=== PATIENT | female | born 1970 | race Caucasian/White ===

== ENCOUNTER → 2017-04-03 | Outpatient (CLI) | payer OTHER | LOC: M.CT 10:48 | DX: R51 Headache (principal) ==

== ENCOUNTER 2018-05-03 23:41 | Emergency (ER) | payer OTHER ==
[~2018-05-03] VITALS: Ht 167.6 cm; Wt 63.5 kg
[2018-05-04] MEDS ORDERED: EFFEXOR XR37.5 MG PO (00:12)
[2018-05-04] MEDS ORDERED: XANAX 0.25 MG0.25 MG PO (00:13)
[2018-05-04] MEDS ORDERED: PREMARIN1.25 MG PO (00:14)
[2018-05-04 00:26] LABS: ABSOLUTE BASOPHILS 0.1 thou/uL (0.0-0.2); ABSOLUTE EOSINOPHILS 0.1 thou/uL (0.0-0.7); ABSOLUTE LYMPHOCYTES 3.5 thou/uL (0.8-5.3); ABSOLUTE MONOCYTES 1.2 thou/uL (0.0-1.2); ABSOLUTE NEUTROPHILS 11.9 thou/uL (1.6-8.1); BASOPHILS 0.4 %; EOSINOPHILS 0.8 %; HEMOGLOBIN 12.5 gm/dL (12.0-15.0); LYMPHOCYTES 20.7 %; MCH 30.3 pg (26.0-34.0); MCHC 33.9 g/dL (28.0-37.0); MCV 89.5 fL (80.0-100.0); MONOCYTES 7.2 %; MPV 7.3 fl. (7.2-11.1); NUCLEATED RBCS 0 /100WBC; PLATELET COUNT* 237 thou/uL (150-400); POLYS 70.9 %; RBC 4.14 mil/uL (4.20-5.00); RDW-CV 14.1 % (10.5-14.5); WBC 16.8 thou/uL (4.0-11.0)
[2018-05-04 00:48] LABS: ALBUMIN 3.6 g/dL (3.4-5.0); CALCIUM 9.5 mg/dL (8.5-10.1); CREATININE 0.9 mg/dL (0.6-1.3); POTASSIUM 3.6 mmol/L (3.5-5.1); TOTAL BILIRUBIN 0.6 mg/dL (<0.1-1.0); TOTAL PROTEIN 7.4 g/dL (6.4-8.2)
[2018-05-04 01:43] LABS: URINE BILIRUBIN NEGATIVE (Negative); URINE BLOOD NEGATIVE (Negative); URINE CLARITY CLEAR; URINE COLOR YELLOW; URINE GLUCOSE-RANDOM NEGATIVE (Negative); URINE KETONES TRACE (Negative); URINE LEUKOCYTES-REFLEX NEGATIVE (Negative); URINE NITRITE-REFLEX NEGATIVE (Negative); URINE PROTEIN NEGATIVE (Negative); URINE UROBILINOGEN 0.2 E.U./dl (0.2-1.0)
[2018-05-04] MEDS ORDERED: HYDROCODONE-AP1 EAC6 PO (02:45)
[2018-05-04] MEDS ORDERED: LEVAQUIN 750 M750 MG PO (02:45)
[2018-05-04] MEDS ORDERED: ZOFRAN ODT4 MG DISSOLVE (02:45)
[2018-05-04 02:55] VITALS: BP 123/74
--- NOTE | 2018-05-05 12:28 | EKG ---
[place] [address] ELECTROCARDIOGRAM REPORT Name: TAMMY JACKSON Room: [facility]#: [id number] Admission: 05/03/18 Attend Phys: Discharge: 05/04/18 Date of : 66 Report #: [id number] THIS REPORT FOR: //name// [facility] ED Test Date: 2018-05-04 Test Time: 00:24:09 Pat Name: TAMMY JACKSON Department: Room: Gender: F Design Tech: : 1970 Requested By: Hanny Olguin Order Number: [id number] MD: Lance Patel Measurements Intervals [place] Rate: 67 P: 32 [place]: 157 QRS: -13 QRSD: 102 T: 4 QT: 425 QTc: 449 Interpretive Statements Sinus rhythm Low voltage, precordial leads Borderline T abnormalities, inferior leads No previous ECG available for comparison Electronically Signed On 05-05-2018 12:28:26 VOLCANOLOGY PROFESSOR by Lance Patel [email or web address] <ELECTRONICALLY SIGNED> By: Lance Patel MD, [facility] 05/05/18 1228 D: 01/23 Lance Patel MD, FACC /EPI
== END 2018-05-04 02:55 | disposition home or self-care (01) ==
LOC: M.ERS 23:41
PROVIDERS: Nurse Practitioner Family
DX: K81.9 Cholecystitis, unspecified (principal); R11.2 Nausea with vomiting, unspecified; Z90.710 Acquired absence of both cervix and uterus

== ENCOUNTER 2018-05-24 06:12 | Observation (INO) | payer OTHER ==
--- NOTE | ~2018-05-24 | H ---
[address] [address] HISTORY AND PHYSICAL Name: TAMMY JACKSON Room: [address] Xi Naik#: [id number] Admission: 05/24/18 Attend Phys: Kimani Ceballos DO Discharge: 05/25/18 Date of : 66 Report #: [id number] THIS REPORT FOR: //name// Please refer to the History and Physical performed in the physician's office. By: 0621Medical Records Staff JOE /CHANELL
--- NOTE | ~2018-05-24 | OP ---
[address] [address] OPERATIVE REPORT Name: TAMMY JACKSON Room: [address] M.RJana#: [id number] Admission: 05/24/18 Attend Phys: Kimani Ceballos DO Discharge: Date of : 66 Report #: [id number] THIS REPORT FOR: //name// CC: Kimani Ferrer DO DATE OF SERVICE: 05/24/2018 PREOPERATIVE DIAGNOSES: Symptomatic cholelithiasis and elevated liver function tests. POSTOPERATIVE DIAGNOSES: Symptomatic cholelithiasis and elevated liver function tests, intra-abdominal adhesions and colotomy. PROCEDURE: Laparoscopic cholecystectomy with intraoperative cholangiograms converted to laparotomy with repair of colotomy, lysis of adhesions and omental patch. SURGEON: Kimani Ceballos DO. GREENSKEEPER: Sahy Pool DO, PGY2, resident. SECOND PRINTING MACHINE OPERATOR: Student Dr. Leonidas Escalante. ANESTHESIA: General endotracheal. ESTIMATED BLOOD LOSS: Less than 30 mL. COMPLICATIONS: There was an incidental colotomy on entering the peritoneal cavity, which was secondary to the transverse colon being adherent to the abdominal wall in the area of the umbilicus. This was immediately recognized and repaired immediately with no fecal contamination. DESCRIPTION OF PROCEDURE: After obtaining proper consents and discussing risks and complications with the patient, she was taken to the operating room, laid on the supine position, administered general anesthesia. She was then prepped and draped in the usual fashion. A timeout was performed. We confirmed the appropriate patient and procedure. Preoperative antibiotics had been given. SCDs were in place. We then made a small infraumbilical skin incision through the patient's previous periumbilical incision. This was carried down through the skin into the subcutaneous tissue using electrocautery for hemostasis. Once the fascia was encountered, it was incised along the midline. The fascia was then grasped and elevated. We then identified the peritoneum, which was bluntly opened using a hemostat. It appeared that there were some allan-incisional adhesions, which were swept away with a finger. [place] [id number] OPERATIVE REPORT Name: TAMMY JACKSON NERISSA Room: [address] M.R.#: [id number] Admission: 05/24/18 Attend Phys: Kimani Ceballos DO Discharge: Date of : 66 Report #: [id number] 5-mm trocar and then began insufflation. The abdomen did insufflate. We then placed the laparoscopic camera. When we placed the camera, it appeared that we were either within an adhesion or within the preperitoneal space, so immediately, I removed the camera and then removed the trocar. I then again attempted to grasp and elevate what appeared to be the peritoneum with hemostat. I then bluntly entered this using a hemostat again. At this point, a small amount of air came out and I was not sure whether this was from insufflating the preperitoneal space or if it was from a bowel injury, so I immediately extended my incision inferiorly and opened the fascia slightly more. I then elevated the fascia using 2 Piyush clamps and then identified that there were adhesions, which appeared to be colon to the abdominal wall. These were freed using blunt and sharp dissection with Metzenbaum scissors until I was able to bring this area up into the wound. We immediately identified an area where there appeared to be a colotomy. This was very small, measuring approximately 1 cm. When I did squeeze proximal and distal to this, a small amount of air came out of this hole. I immediately repaired the colotomy using interrupted 2-0 Vicryl sutures to close it primarily and then also placed a Lembert stitch over top of this and then also placed an epiploic appendage over top and sutured that in place using a 2-0 Vicryl suture as well. At this point, I was able to see within the peritoneal cavity very easily. We elected since there was no contamination to proceed with laparoscopic cholecystectomy with intraoperative cholangiograms. So prior to doing that, I closed the fascia, so as just large enough for us to place our 5-mm Cristi trocar through. We then insufflated the abdomen again. Full visual inspection of the anterior abdominal organs was performed. There were some adhesions along the left upper quadrant, mostly omentum, but this did appear to be tenting the transverse colon up, so these were taken down cautiously using electrocautery assuring no injury to the bowel. I stayed quite a ways away from that. We then explored the entire abdomen and again, we could identify the area that I just repaired the colotomy. There did appear to be some air in the epiploic appendages around this, but there was no evidence of any gross contamination. At this point, we elected to proceed with laparoscopic cholecystectomy with intraoperative cholangiograms. The patient was then placed in reverse Trendelenburg position, rotated to the left. A 5-mm trocar was placed in the subxiphoid position. Two 5-mm trocars were placed in the right flank. I was then able to grasp and elevate the gallbladder. I identified Faye's pouch, which was grasped and elevated. The hepatoduodenal ligament was then stripped down from the gallbladder until I was able to visualize the cystic duct. We also identified the common hepatic and common bile duct, which were kept well out of the way. I then dissected the cystic duct completely free, it was seen coursing directly into the gallbladder. I placed a clip at the gallbladder cystic duct junction and then made a small ethan in the cystic duct. I then inserted a cholangiogram catheter through the anterior abdominal wall using a 14-gauge Angiocath. This catheter was then inserted into the cystic duct and clipped in place. I then performed cholangiography using fluoroscopy. This showed good flow of bile down a fairly long cystic duct into the common bile duct and into the duodenum. There [place] [address] OPERATIVE REPORT Name: TAMMY JACKSON NERISSA Room: [address] Xi Sanchez.#: [id number] Admission: 05/24/18 Attend Phys: Kimani Ceballos DO Discharge: Date of : 66 Report #: [id number] the common hepatic duct and hepatic radicles. There was no evidence of any filling defects or obstruction. At this point, we then removed the cholangiogram catheter. I placed 4 clips proximally on the cystic duct and the cystic duct was divided. I then identified the cystic artery, which was also seen coursing directly into the gallbladder. This was clipped proximally and distally and then divided. The gallbladder was then removed from the liver bed using electrocautery. Once this was completely removed, the cystic duct and cystic artery stumps were checked for any leak or bleeding as well as the liver bed. The gallbladder was then placed into an Endopouch. We then went back and explored the abdomen again and again checked the transverse colon where there had been a colotomy. There was still some air identified in the epiploic appendages and even though I had already repaired this area, I was somewhat concerned, so we elected to then remove the gallbladder through the umbilical incision, but I did open the fascia of that area again and then since I had taken down the adhesions to the transverse colon, I was able to bring the entire transverse colon out of the abdomen and we again explored. I did try to milk the colon, both proximally and distally to see if I could find any area that was leaking. I did not find any further areas of leak, but as a precaution, I did oversew one area where there was a small serosal tear and then, I also placed an omental patch over top of the area that had previously been repaired at the beginning of the surgery as well as this omental patch was sewed in place using 2-0 Vicryl suture. I then again explored the entire abdomen through our fairly small incision and ran the small bowel to assure there were no other injuries. As a precaution prior to taking out our laparoscopic trocars, we had placed a 15-Portuguese Angel-Acosta drain also. I then closed the fascia and peritoneum of this midline infraumbilical incision using a running 0 PDS suture. We also closed a portion of that with interrupted 0 PDS suture. The skin incisions were then all closed using 4-0 Monocryl subcuticular stitches. The drain was sutured in place using 2-0 nylon suture. We also prior to removing our laparoscopic instruments had copiously irrigated the abdominal cavity, especially in the area of the transverse colon colotomy. Once this was all done and the skin was closed, sterile dressings were placed. The patient was then awakened in the operating room and transported to recovery room in stable condition. By: [id number] Eugenio Ceballos DO /kindra
[~2018-05-24 06:12] MED LIST: EFFEXOR XR37.5 MG PO; HYDROCODONE-AP1 EAC6 PO; LEVAQUIN 750 M750 MG PO; PREMARIN1.25 MG PO; XANAX 0.25 MG0.25 MG PO; ZOFRAN ODT4 MG DISSOLVE
[2018-05-24 07:11] LABS: ALBUMIN 3.2 g/dL (3.4-5.0); DIRECT BILIRUBIN 0.1 mg/dL (<0.1-0.3); TOTAL BILIRUBIN 0.3 mg/dL (<0.1-1.0); TOTAL PROTEIN 6.9 g/dL (6.4-8.2)
[2018-05-24 13:33] VITALS: BP 116/72
--- NOTE | 2018-05-24 15:54 | NUR ---
PATIENT ARRIVED ON UNIT FROM PACU AT 1600. COMPLETED ASSESSMENT. VITAL SIGNS AND SPO2 STABLE. IV CLEAN, FLUIDS INFUSING. PAIN WELL CONTROLLED WITH PAIN MEDS. CARLOS DRAIN INTACT. TOELRATED SIPS OF WATER, NO NAUSEA AND VOMITING. STILL WAITING ON PATIENT TO VOID. COMPLETED HOURLY ROUDING. CALL LIGHT WITHIN REACH, WILL CONTINUE TO MONITOR.
[2018-05-24 17:02] VITALS: BP 106/62
--- NOTE | 2018-05-24 18:58 | NUR ---
PATIENT REMAINED ALERT AND ORIENTED X'S 4. AGREE WITH PREVIOUS ASSESSMENT. PATIENT HAS VOIDED AND WALKED HALLS MULTIPLE TIMES. PAIN WELL CONTROLLED WITH MEDS. CALL LIGHT WITHIN REACH. WILL CONTINUE TO MONITOR.
[2018-05-24 22:10] VITALS: BP 116/52
[2018-05-25 00:30] VITALS: BP 94/64
[2018-05-25 04:12] LABS: ABSOLUTE LYMPHOCYTES 1.6 thou/uL (0.8-5.3); ABSOLUTE MONOCYTES 0.9 thou/uL (0.0-1.2); ABSOLUTE NEUTROPHILS 11.2 thou/uL (1.6-8.1); BASOPHILS 0.2 %; HEMATOCRIT 32.6 % (37.0-47.0); HEMOGLOBIN 11.1 gm/dL (12.0-15.0); LYMPHOCYTES 11.7 %; MCH 30.9 pg (26.0-34.0); MCHC 34.2 g/dL (28.0-37.0); MCV 90.4 fL (80.0-100.0); MONOCYTES 6.4 %; MPV 7.8 fl. (7.2-11.1); NUCLEATED RBCS 0 /100WBC; PLATELET COUNT* 160 thou/uL (150-400); POLYS 81.7 %; RBC 3.61 mil/uL (4.20-5.00); RDW-CV 14.1 % (10.5-14.5); WBC 13.8 thou/uL (4.0-11.0)
[2018-05-25 04:30] VITALS: BP 107/62
[2018-05-25 04:30] LABS: ALBUMIN 2.8 g/dL (3.4-5.0); CALCIUM 8.1 mg/dL (8.5-10.1); POTASSIUM 3.9 mmol/L (3.5-5.1); TOTAL BILIRUBIN 0.4 mg/dL (<0.1-1.0); TOTAL PROTEIN 6.4 g/dL (6.4-8.2)
--- NOTE | 2018-05-25 05:41 | NUR ---
PT SLEPT ON AND OFF THIS SHIFT. ASSESSMENT DOCUMENTED. MEDS GIVEN PER E-JUN. IV PATENT. PAIN MEDS GIVEN PER E-JUN WITH RELIEF. NO REPORTS OF NAUSEA THIS SHIFT. DRESSING TO ABD C/D/I, CARLOS DRAIN IN PLACE. WILL CONTINUE WITH PLAN OF CARE.
[2018-05-25 08:45] VITALS: BP 112/61
[2018-05-25] MEDS ORDERED: NORCO 5-325 TA1 EACH PO (14:44)
[2018-05-25 14:58] VITALS: BP 112/61
--- NOTE | 2018-05-25 15:52 | NUR ---
PATIENT DISCHARGED FROM UNIT AT 1545. ALERT AND ORIENTED X 4. VITAL SIGNS STABLE ON ROOM AIR. UP AD SALLIE IN ROOM AND AMBULATING IN HALLWAY. IV AND CARLOS DRAIN DISCONTINUED. SCRIPT, MEDICATION INFORMATION, AND DISCHARGE INSTRUCTIONS GIVEN TO PATIENT. LEFT WITH ALL BELONGINGS. PATIENT LEFT WITH SIGNIFICANT OTHER VIA CAR.
[2018-05-25 16:00] VITALS: BP 112/61
--- NOTE | 2018-05-28 11:13 | PATH ---
[address] [address] PATHOLOGY RPT PROCEDURE Name: TAMMY HERNANDEZ NERISSA Room: [address] Xi Naik#: [id number] Admission: 05/24/18 Date of : 66 Discharge: 05/25/18 Report #: [id number] Path Case #: [id number] [facility] Accession Number: [id number] . 01 Material submitted: . GALLBLADDER . 01 Clinical history: . Cholecystitis and cholelithiasis. . 02 Diagnosis: Gallbladder: - Chronic cholecystitis, cholesterolosis and cholelithiasis. . (FABIO:mml; 05/27/2018) QL/05/27/2018 . 02 Electronically signed: . John Quinones MD, Pathologist NPI- [id number] . 01 Gross description: . Received in formalin labeled "Tammy Hernandez, gallbladder" is an intact cholecystectomy specimen measuring 10.0 x 3.5 x 2.4 cm. The serosa is pink-koch and smooth. The specimen is opened to reveal yellow-green velvety mucosa with bright yellow stippling and an average wall thickness of 0.2 cm. No polyps or masses are identified. Multiple yellow-koch bosselated calculi are present measuring in aggregate 3.5 x 2.5 x 0.8 cm and ranging from 0.1-0.8 cm in greatest dimension. Work Order Sorting Clerk sections of the fundus and body and the cystic duct margin are submitted in cassette A1. ([facility]; 05/24/2018) SYC/SYC . 02 Pathologist provided ICD-10: K80.10 . 02 CPT . 122171 Specimen Comment: A courtesy copy of this report has been sent to Specimen Comment: [phone], . Specimen Comment: Report sent to / DR AVENDAÑO Specimen Comment: A duplicate report has been generated due to demographic updates. Performed at: [address] [facility] [id number] MD Bhavesh Cooley MD Phone: [phone] Performed at: [address] [place] [address] PATHOLOGY RPT PROCEDURE Name: TAMMY HERNANDEZ NERISSA Room: [address] Xi Naik#: [id number] Admission: 05/24/18 Date of : 66 Discharge: 05/25/18 Report #: [id number] Path Case #: [id number] [facility] [address] Vijaya Briones, LESLIE Mendes [id number] MD John Quinones MD Phone: [phone]
== END 2018-05-25 15:45 | disposition home or self-care (01) ==
LOC: M.SUR 06:12 → M.ORTHSURG 09:39 → M.SUR 15:02 → M.ORTHSURG 05-25 15:45
PROVIDERS: ADMIT Surgery
DX: K80.10 Calculus of gallbladder with chronic cholecystitis without obstruction (principal); R94.5 Abnormal results of liver function studies; Z79.899 Other long term (current) drug therapy